=== PATIENT | male | born 1960 | race Two or more races ===

== ENCOUNTER 2018-06-30 08:34 | Emergency (ER) | payer OTHER ==
[~2018-06-30] VITALS: Ht 175.3 cm; Wt 68.0 kg
[2018-06-30 11:53] VITALS: BP 130/85
== END 2018-06-30 11:57 | disposition home or self-care (01) ==
LOC: ED 11:13
DX: S50.11XA Contusion of right forearm, initial encounter (principal); V03.99XA Pedestrian with other conveyance injured in collision with car, pick-up truck or van, unspecified whether traffic or nontraffic accident, initial encounter; Y93.89 Activity, other specified; Y92.89 Other specified places as the place of occurrence of the external cause; Y99.8 Other external cause status
CPT/HCPCS: 99284